=== PATIENT | female | born 1985 | race Caucasian/White ===

== ENCOUNTER 2025-06-11 12:41 | Emergency (ER) | payer BC ==
[~2025-06-11] VITALS: Ht 167.6 cm; Wt 81.6 kg
[2025-06-11 12:55] VITALS: BP 132/81; TEMP 97.9
[2025-06-11] MEDS ORDERED: TYL2T PO (13:32)
[2025-06-11] MEDS ORDERED: LIDO30AD10 TP (13:32)
[2025-06-11] MEDS ORDERED: LIDOCAINE 5% (PATCH) 1 EA PATCH TP ONE (13:33)
[2025-06-11] MEDS ORDERED: ACETAMINOPHEN 325 MG TABLET ONE (13:33)
[2025-06-11] MEDS: ACETAMINOPHEN 325 MG TABLET PO ONE (13:40)
[2025-06-11] MEDS: LIDOCAINE 5% (PATCH) 1 EA PATCH TP SCH (13:40)
[2025-06-11 13:42] VITALS: O2SAT 99
== END 2025-06-11 13:43 | disposition home or self-care (01) ==
LOC: ER 12:50
DX: S13.4XXA Sprain of ligaments of cervical spine, initial encounter (principal); Z86.718 Personal history of other venous thrombosis and embolism; Z88.6 Allergy status to analgesic agent; V89.2XXA Person injured in unspecified motor-vehicle accident, traffic, initial encounter; Y93.89 Activity, other specified; Y92.410 Unspecified street and highway as the place of occurrence of the external cause; Y99.9 Unspecified external cause status